=== PATIENT | male | born 1940 | race Caucasian/White ===

== ENCOUNTER 2017-11-15 15:33 | Inpatient (IN) | payer MEDICARE, OTHER ==
[~2017-11-15] VITALS: Ht 182.9 cm; Wt 84.1 kg
[2017-11-15] MEDS ORDERED: SODIUM CHLORIDE 0.9% 1,000 ML IV ONE (15:45)
[2017-11-15 17:12] LABS: Basophils # (auto) 0 uL; Basophils % (auto) 0.3 % (0.0-2.0); Eosinophils # (auto) 0 uL; Hematocrit 48.5 % (41.0-53.0); Hemoglobin 16.5 g/dL (13.5-17.5); Lymphocytes # (auto) 0.5 uL; Lymphocytes % (auto) 5.5 % (10.0-50.0); Mean Corpuscular Hemoglobin 31.4 pg (28.0-32.0); Mean Corpuscular Hgb Conc. 33.9 g/dL (32.0-36.0); Mean Corpuscular Volume 92.5 fL (80.0-100.0); Monocytes # (auto) 0.7 uL; Monocytes % (auto) 8.7 % (0.0-12.0); Neutrophils % (auto) 85.5 % (37.0-80.0); Nucleated Red Blood Cells % 0.1 %; Platelet Count (auto) 171 10^3/uL (140-450); Red Blood Cells 5.24 10^6/uL (4.5-5.90); Red Cell Distribution Width 15.4 % (11.8-14.3); White Blood Cell 8.2 10^3/uL (4.4-10.8)
[2017-11-15 17:24] LABS: Alanine Aminotransferase 326 U/L (16-61); Albumin 3.7 g/dL (3.4-5.0); Anion Gap 12 (5-15); Aspartate Aminotransferase 298 U/L (15-37); BUN/Creatinine Ratio 31.4; Blood Alcohol < 3.0 mg/dL (0-5); Blood Urea Nitrogen 50 mg/dL (7-18); Calcium 9.2 mg/dL (8.5-10.1); Carbon Dioxide 25 mmol/L (21-32); Chloride 100 mmol/L (98-107); GFR African American 54 mL/min; GFR Non-African American 45 mL/min; Glucose 106 mg/dL (74-106); Magnesium 2.3 mg/dL (1.6-2.6); Potassium 3.6 mmol/L (3.5-5.1); Sodium 137 mmol/L (136-145)
[2017-11-15 17:29] LABS: Alkaline Phosphatase 104 U/L (45-117); Bilirubin, Total 0.8 mg/dL (0.2-1.0); Lactic Acid w/Reflex 2.9 mmol/L (0.4-2.0); Total Protein 7.9 g/dL (6.4-8.2)
[2017-11-15] MEDS ORDERED: MORPHINE SULF INJ 2 MG/ML SYRINGE 1ML IV PRN ×2 (18:30)
[2017-11-15] MEDS ORDERED: NITROGLYCERIN 0.4 MG SL TAB SL PRN (18:30)
[2017-11-15] MEDS ORDERED: DEXTROSE (50%) 50ML SYRG IV PRN (18:30)
[2017-11-15] MEDS ORDERED: PROMETHAZINE HCL 25 MG/ML 1ML IV PRN (18:30)
[2017-11-15] MEDS ORDERED: TEMAZEPAM 15 MG CAP PO PRN (18:30)
[2017-11-15] MEDS ORDERED: LACTULOSE 20Gm/30ML SOLN PO PRN (18:30)
[2017-11-15] MEDS ORDERED: cefTRIAXone 1GM/10ml IVPUSH 10 ML IV ONE (18:30)
[2017-11-15] MEDS ORDERED: LORazepam 0.5 MG TAB PO PRN (18:30)
[2017-11-15] MEDS ORDERED: ACETAMINOPHEN 500 MG TAB PO PRN (18:30)
[2017-11-15] MEDS: SODIUM CHLORIDE 0.9% 1,000 ML IV SCH (18:42)
[2017-11-15] MEDS ORDERED: ZOLP12.564 PO (18:59)
[2017-11-15] MEDS ORDERED: AMLO5TAB2 PO (18:59)
[2017-11-15] MEDS ORDERED: GABA-339 PO (18:59)
[2017-11-15] MEDS ORDERED: LOSA50TA6 PO (18:59)
[2017-11-15] MEDS ORDERED: BUDE0.5S IN (18:59)
[2017-11-15] MEDS ORDERED: PANT40T PO (18:59)
[2017-11-15] MEDS ORDERED: MELO1TAB56 PO (18:59)
[2017-11-15] MEDS ORDERED: LEVOFLOXACIN 500 MG/100 ML PREMIX BAG IV ONE (19:15)
[2017-11-15 19:49] LABS: Folate (Folic Acid) > 24.00 ng/mL (5.38-24)
[2017-11-15] MEDS: HYDROcodone-ACET 5/325MG TAB PO PRN (20:00)
[2017-11-15] MEDS ORDERED: OSELTAMIVIR 75 MG CAP PO ONE (20:15)
[2017-11-15 20:51] LABS: Amylase 36 U/L (25-115); Lipase 164 U/L (73-393)
[2017-11-15 21:00] VITALS: BP 155/78
[2017-11-15] MEDS: InsuLIN REG 1unit/0.01ml Soln (100units/ml) SC SCH (22:00)
[2017-11-15 22:21] VITALS: BP 155/78
[2017-11-15] MEDS: ACCU-CHEK COMFORT CURVE STRIP VI SCH (22:29)
[2017-11-16] MEDS: SODIUM CHLORIDE 0.9% 1,000 ML IV SCH ×2 (04:29→18:18)
[2017-11-16 04:49] VITALS: BP 149/78
[2017-11-16] MEDS: InsuLIN REG 1unit/0.01ml Soln (100units/ml) SC SCH (06:37)
[2017-11-16] MEDS: ACCU-CHEK COMFORT CURVE STRIP VI SCH (06:38)
[2017-11-16 08:09] VITALS: BP 147/67
[2017-11-16] MEDS ORDERED: OSELTAMIVIR 30 MG CAP PO SCH (10:00)
[2017-11-16] MEDS ORDERED: ENOXAPARIN SOD 40 MG/0.4 ML SYRINGE SC SCH (10:00)
[2017-11-16] MEDS: ASPirin 81 mg TAB PO SCH (10:33)
[2017-11-16] MEDS: cefTRIAXone 1GM/10ml IVPUSH 10 ML IV SCH (10:35)
[2017-11-16 12:10] VITALS: BP 143/100
[2017-11-16] MEDS ORDERED: methylPREDNISolone SOD SUCC 40 MG/ML VL IV ONE (12:45)
[2017-11-16] MEDS: HYDROcodone-ACET 5/325MG TAB PO PRN (14:42)
[2017-11-16] MEDS: GABAPENTIN 300 MG CAP PO SCH ×2 (15:03→22:07)
[2017-11-16 17:07] VITALS: BP 143/79
[2017-11-16] MEDS: BOOST PLUS 8 ounce PO SCH (18:00)
[2017-11-16] MEDS: ALBUTEROL SULF 2.5 MG/0.5ML(0.5%) NEB SOLN NEB SCH (19:00)
[2017-11-16] MEDS: IPRATROPIUM BROM 0.5 MG/2.5ML INH SOL NEB SCH (19:00)
[2017-11-16 20:00] VITALS: BP 146/76
[2017-11-16] MEDS: methylPREDNISolone SOD SUCC 40 MG/ML VL IV SCH (22:07)
[2017-11-16] MEDS: OSELTAMIVIR 75 MG CAP PO SCH (22:07)
[2017-11-16 22:12] VITALS: BP 146/76
[2017-11-16 23:04] LABS: Urine Bacteria NONE SEEN /hpf (None Seen); Urine Blood Negative /uL (Negative); Urine Mucus FEW (None Seen); Urine Specific Gravity 1.024 (1.001-1.035); Urine WBC 1 /hpf (0 - 3)
[2017-11-17] VITALS (7 sets, daily range): BP systolic 129–151; BP diastolic 73–97
[2017-11-17] MEDS: GABAPENTIN 300 MG CAP PO SCH ×3 (06:05→22:22)
[2017-11-17] MEDS: SODIUM CHLORIDE 0.9% 1,000 ML IV SCH ×3 (06:05→20:29)
[2017-11-17 06:21] LABS: Basophils # (auto) 0 uL; Basophils % (auto) 0.4 % (0.0-2.0); Eosinophils # (auto) 0 uL; Hematocrit 40.8 % (41.0-53.0); Hemoglobin 13.9 g/dL (13.5-17.5); Lymphocytes # (auto) 0.5 uL; Lymphocytes % (auto) 16.2 % (10.0-50.0); Mean Corpuscular Hemoglobin 31.3 pg (28.0-32.0); Mean Corpuscular Hgb Conc. 34.1 g/dL (32.0-36.0); Mean Corpuscular Volume 91.8 fL (80.0-100.0); Monocytes # (auto) 0.1 uL; Monocytes % (auto) 4.1 % (0.0-12.0); Neutrophils # (auto) 2.4 uL; Neutrophils % (auto) 79.3 % (37.0-80.0); Platelet Count (auto) 138 10^3/uL (140-450); Red Blood Cells 4.44 10^6/uL (4.5-5.90); Red Cell Distribution Width 15.5 % (11.8-14.3)
[2017-11-17 06:39] LABS: BUN/Creatinine Ratio 40.5; Calcium 8.1 mg/dL (8.5-10.1); Potassium 4.5 mmol/L (3.5-5.1)
[2017-11-17] MEDS: IPRATROPIUM BROM 0.5 MG/2.5ML INH SOL NEB SCH ×4 (06:44→19:08)
[2017-11-17] MEDS: ALBUTEROL SULF 2.5 MG/0.5ML(0.5%) NEB SOLN NEB SCH ×4 (06:44→19:08)
[2017-11-17] MEDS: BOOST PLUS 8 ounce PO SCH ×2 (08:00→12:00)
[2017-11-17] MEDS: cefTRIAXone 1GM/10ml IVPUSH 10 ML IV SCH (10:27)
[2017-11-17] MEDS: methylPREDNISolone SOD SUCC 40 MG/ML VL IV SCH ×2 (10:27→22:23)
[2017-11-17] MEDS: OSELTAMIVIR 75 MG CAP PO SCH ×2 (10:28→22:23)
[2017-11-17] MEDS: ASPirin 81 mg TAB PO SCH (10:28)
[2017-11-18 05:08] VITALS: BP 147/93
[2017-11-18] MEDS: GABAPENTIN 300 MG CAP PO SCH ×2 (06:06→14:00)
[2017-11-18] MEDS: IPRATROPIUM BROM 0.5 MG/2.5ML INH SOL NEB SCH ×3 (06:07→12:02)
[2017-11-18] MEDS: ALBUTEROL SULF 2.5 MG/0.5ML(0.5%) NEB SOLN NEB SCH ×3 (06:07→12:02)
[2017-11-18] MEDS: SODIUM CHLORIDE 0.9% 1,000 ML IV SCH (07:39)
[2017-11-18] MEDS: BOOST PLUS 8 ounce PO SCH ×2 (08:00→12:00)
[2017-11-18 08:56] VITALS: BP 139/63
[2017-11-18] MEDS: ASPirin 81 mg TAB PO SCH (10:25)
[2017-11-18] MEDS: methylPREDNISolone SOD SUCC 40 MG/ML VL IV SCH (10:25)
[2017-11-18] MEDS: cefTRIAXone 1GM/10ml IVPUSH 10 ML IV SCH (10:25)
[2017-11-18] MEDS: OSELTAMIVIR 75 MG CAP PO SCH (10:25)
[2017-11-18 13:00] VITALS: BP 151/77
== END 2017-11-18 15:45 | disposition home or self-care (01) | DRG 871 ==
LOC: ER 15:33 → TELE 15:34 → TELE-EAST 21:10
PROVIDERS: ADMIT Internal Medicine; ATTEND Internal Medicine
DX: A41.9 Sepsis, unspecified organism (principal); G92 Toxic encephalopathy; N17.9 Acute kidney failure, unspecified; J18.9 Pneumonia, unspecified organism; I48.91 Unspecified atrial fibrillation; M62.82 Rhabdomyolysis; I67.2 Cerebral atherosclerosis; E11.9 Type 2 diabetes mellitus without complications; E86.0 Dehydration; F03.90 Unspecified dementia, unspecified severity, without behavioral disturbance, psychotic disturbance, mood disturbance, and anxiety; I10 Essential (primary) hypertension; J10.1 Influenza due to other identified influenza virus with other respiratory manifestations; Z86.73 Personal history of transient ischemic attack (TIA), and cerebral infarction without residual deficits; Z90.49 Acquired absence of other specified parts of digestive tract
CPT/HCPCS: 36415; 70450; 71045; 74176; 76705; 80048; 80053; 80061; 80320; 81001; 82150; 82550; 82607; 82746; 82962; 83036; 83605; 83690; 83735; 83880; 84443; 84484; 85025; 85652; 87040; 87070; 87086; 87205; 87400; 93005; 93306; 93886; 94640; 94761; 96361; 96374; 96375; G9035; J1956

== ENCOUNTER 2019-05-10 09:48 | Emergency (ER) | payer MEDICARE, OTHER ==
[~2019-05-10] VITALS: Ht 177.8 cm; Wt 74.8 kg
[~2019-05-10 09:48] MED LIST: AMLO5TAB13 PO; BUDE0.5S IN; GABA-339 PO; LOSA-46 PO; MELO1TAB56 PO; PANT40T PO; ZOLP12.564 PO
[2019-05-10 09:53] VITALS: BP 108/49
[2019-05-10] MEDS ORDERED: DEXTROSE 50% SYRINGE 100 ML IV ONE (09:54)
[2019-05-10] MEDS ORDERED: EPINEPHrine HCL 1 MG/10 ML SYRG IV ONE (09:56)
[2019-05-10] MEDS ORDERED: SODIUM BICARBONATE 8.4% INJ 50ML SYRINGE IV ONE (09:56)
[2019-05-10] MEDS ORDERED: CALCIUM CHLOR(10%) 100MG/ML 10ML SYRINGE IV ONE (09:56)
== END 2019-05-10 12:02 | disposition expired ==
LOC: EDUNIT# 09:48 → EDBD 09:48 → ER 09:55
DX: I46.9 Cardiac arrest, cause unspecified (principal); J44.9 Chronic obstructive pulmonary disease, unspecified; E11.9 Type 2 diabetes mellitus without complications; I10 Essential (primary) hypertension; Z79.899 Other long term (current) drug therapy
CPT/HCPCS: 31500; 92950; 99285; J0171; J7042